=== PATIENT | male | born 1995 | race Caucasian/White ===

== ENCOUNTER → 2024-07-08 | Outpatient (CLI) | payer OTHER, SELFPAY | END | disposition home or self-care (01) | LOC: SLDO 14:38 | PROVIDERS: PCP Nurse Practitioner Family; Referring Provider Nurse Practitioner Family; Visit Provider Nurse Practitioner Family | DX: N39.0 Urinary tract infection, site not specified (principal) | CPT/HCPCS: 87086 ==

== ENCOUNTER → 2024-07-09 | Outpatient (CLI) | payer OTHER, SELFPAY | END | disposition home or self-care (01) | LOC: CDIM 08:07 | PROVIDERS: PCP Family Medicine; Referring Provider Nurse Practitioner Family; Visit Provider Nurse Practitioner Family | DX: R39.82 Chronic bladder pain (principal) ==

== ENCOUNTER 2024-08-09 05:47 | Emergency (ER) | payer OTHER, SELFPAY ==
[2024-08-09 05:50] VITALS: BMI 26.6
[2024-08-09 05:57] VITALS: BP 116/81; PULSE 70; RESP 18; TEMP 36.4; O2SAT 100
--- NOTE | 2024-08-09 06:03 | PD.EDADULT ---
ED General RME/HPI General Chief complaint: Back Pain/Injury Stated complaint: L flank/back pain w nausea/vomiting Time Seen by Provider: 08/09/24 06:03 Arrival date/time: 08/09/24 05:47 CC: Left flank pain HPI spontaneous resolved upon arrival here in the emergency room, onset was 3 to 4 hours ago with progressive increase in CBD mild nausea without vomiting. Patient has a history of kidney stones on the left side last episode was 1 year ago he was informed that there were multiple stones in the renal pelvis. At the time of the exam the patient is completely pain-free no nausea no shortness of breath or difficulty breathing. Related Data Home Medications ?Medication ?Instructions ?Recorded ?Confirmed albuterol sulfate 90 mcg/actuation 1 puff inhalation Q4H PRN Cough 11/12/21 11/02/23 aerosol inhaler pantoprazole 40 mg tablet,delayed 40 mg PO QDAY 11/01/23 11/02/23 release Previous Rx's ?Medication ?Instructions ?Recorded azathioprine 50 mg tablet 50 mg PO QDAY #30 tabs 11/02/23 folic acid 1 mg tablet 1 mg PO QDAY #30 tabs 11/02/23 sulfasalazine 500 mg tablet 1 g (2 x 500 mg) PO BID 30 days 11/02/23 #120 tabs ondansetron 4 mg disintegrating 4 mg PO Q8H PRN nausea and 11/10/23 tablet vomiting #30 tabs prednisone 10 mg tablets in a dose 10 mg PO QDAY #48 tabs 11/10/23 pack tamsulosin 0.4 mg capsule (Flomax) 0.4 mg PO QDAY #14 caps 08/09/24 Allergies Allergy/AdvReac Type Severity Reaction Status Date / Time No Known Allergies Allergy Verified 08/09/24 05:47 Review of Systems Review of Systems Narrative Review of Systems: GEN: No fever, no chills, no weight loss EYES: No discharge, no visual changes, no pain HEENT: No ear pain, no congestion, no sore throat PULM: No shortness of breath, no cough, no congestion CV: No chest pain, no dyspnea on exertion, no palpitations GI: No nausea, no vomiting, no diarrhea, no pain, no constipation : No frequency, no urgency, no dysuria MUSC/SKEL: No joint pain, no back pain SKIN: No rash PSYCH: No hallucinations, no depression HEME/LYMPH: No easy bleeding or bruising tendencies NEURO: No weakness, no headache Past Medical History Past Medical History NEUROLOGIC: Positive Neurological Disorders and Migraine; Negative Seizures CARDIAC: Positive Cardiac Disorders and Angina; Negative Congestive Heart Failure RESPIRATORY: Positive Asthma and Bronchitis; Negative Chronic Obstructive Pulmonary Disease (COPD) GASTROINTESTINAL: Positive Gastrointestinal Disorders, Crohn's Disease and Gastroesophageal Reflux Disease GENITOURINARY: Negative Genitourinary Disorders or Renal Disease MUSCULOSKELETAL: Negative Musculoskeletal Disorders ENDOCRINE: Negative Endocrine Disorders, Diabetes Mellitus Type 1 or Diabetes Mellitus Type 2 HEMATOLOGIC: Negative Blood Disorders, Anemia or Sickle Cell Disease OTHER HISTORY: Positive Chicken Pox; Negative Autoimmune Disease, Falls, Blood Transfusions, Anesthesia Reactions or Cancer Surgical History SURGICAL: Negative Cardiac Surgery or Vasectomy Social History SMOKING STATUS: Never smoker SUBSTANCE USE: does not use ED Exam Narrative Physical exam: [General: Not in any acute distress Head normocephalic HEENT: Within acceptable limits Neck is supple nontender Chest equal chest rise nontender to palpation Respiratory: Clear to auscultation no wheezes crackles or rubs CV: Rate rhythm is regular no murmurs rubs or clicks Abdomen is flat, soft nontender no masses positive bowel sounds all 4 quadrants Back: No CVA tenderness no spinous process tenderness from cervical spine thoracic and lumbar spine Skin: Intact no petechiae rash induration ulceration or crepitus Extremities: Moving all extremity against resistance cap refill less than 2 seconds neurosensory intact Neuro: Awake alert oriented x3 Glascow coma 15 no focal deficits] Course Quality Measures none Vital Signs Vital signs: Vital Signs Temperature 97.6 F 08/09/24 05:57 Pulse Rate 70 08/09/24 05:57 Respiratory Rate 18 08/09/24 05:57 Blood Pressure 116/81 08/09/24 05:57 Pulse Oximetry (%) 100 08/09/24 05:57 Oxygen Delivery Method Room Air 08/09/24 05:57 [facility] Patient data External records reviewed:: [facility] previous records Clinical information provided by:: patient Social determinants that could affect healthcare access:: none Patient has the following chronic illnesses:: Kidney stones How is presenting disease/condition affected by chronic disease/condition?: exacerbated by Evaluation data The following diagnostics were reviewed and interpreted by me:: other (specify) Lab and/or radiology exams considered but not ordered:: None Interpretation Summary: Complete resolution of all symptoms suspect the patient has dropped kidney stone into the bladder, at this time patient be discharged home on a small amount of Flomax if there is worsening symptoms he is advised to return the emergency room immediately Medications Medications considered but not ordered:: None Medication administrations:: None Consultations Consultation(s) initiated? (list below): No Diagnosis Differential Diagnosis ED Complaint MDM: Urolithiasis hydroureter hydronephrosis Most likely diagnosis given after review of the tests above:: Probable kidney stone Admission Indicated Admission indicated?: not indicated Explain why admission is indicated or not indicated:: Stable for discharge Admission Request Was there a request for admission?: No Disposition Plan Disposition Plan: Discharge Discharge Attestation Discharge Attestation: The patient and all family members were given an opportunity to ask questions and understood the discharge instructions. Discharge instructions specifically effects, indications for sooner follow up or return to the emergency department, and the expected course of current diagnosis. Patient condition: Stable Medical Decision Making Differential Diagnosis Differential Diagnosis: Urolithiasis hydroureter hydronephrosis Discharge Plan Plan Patient Disposition: HOME (Self Care) Patient condition on transfer: Stable Prescriptions/Referrals Prescriptions/Med Rec: New tamsulosin [Flomax] 0.4 mg capsule 0.4 mg PO QDAY Qty: 14 0RF No Action albuterol sulfate 90 mcg/actuation HFA aerosol inhaler 1 puff INHALATION Q4H PRN (Reason: Cough) Patient Comments: INHALE 1 PUFF BY MOUTH EVERY 4 HOURS FOR 30 DAYS pantoprazole 40 mg tablet,delayed release (DR/EC) 40 mg PO QDAY Patient Comments: TAKE 1 TABLET BY MOUTH EVERY DAY sulfasalazine 500 mg Tablet 1 g PO BID 30 Days Qty: 120 3RF Rx Instructions: give with food (meal/snack) folic acid 1 mg Tablet 1 mg PO QDAY Qty: 30 3RF azathioprine 50 mg Tablet 50 mg PO QDAY Qty: 30 0RF prednisone 10 mg tablets,dose pack 10 mg PO QDAY Qty: 48 0RF ondansetron 4 mg tablet,disintegrating 4 mg PO Q8H PRN (Reason: nausea and vomiting) Qty: 30 0RF Problem List Clinical Impression: Flank pain Impression comment: Suspected kidney stone has just dropped in the ted Patient/Caregiver Discharge Instructions Other Activity Instructions:: SPECT he just had a kidney stone that dropped in the bladder as you have symptom-free use the Flomax as necessary if the symptoms recur. Follow-up with your primary care provider Education Materials: Abdominal Pain Print Language: Martiniquais Stand Alone Forms: Paula Award Info., Patient Portal Info Letter, Work/School Release PA/CARDIOPULMONARY TECHNICIAN AND EEG TECH Supervising Physician PA/CARDIOPULMONARY TECHNICIAN AND EEG TECH Supervising Physician: James Romo ENP
== END 2024-08-09 06:14 | disposition home or self-care (01) ==
LOC: SERX 06:18
PROVIDERS: Emergency Provider Emergency Medicine; PCP Family Medicine
DX: R10.9 Unspecified abdominal pain (principal); Z87.442 Personal history of urinary calculi
CPT/HCPCS: 99281

== ENCOUNTER → 2024-09-05 | Outpatient (CLI) | payer OTHER, SELFPAY ==
--- NOTE | 2024-09-05 07:09 | XR_ITS ---
Examination: Ultrasound urinary bladder Technique: Grayscale sonographic images urinary bladder Exam date and time: September 05, 2024 0715 hrs. Indications: Pelvic pain left flank pain. Sensation with urination beginning one week ago, history left kidney stones Findings: No bladder mass or bladder calculi Bladder prevoid volume 57 cc postvoid volume 60 cc Prostate 2.6 x 2.1 x 3.0 cm: 8.6 cc no prostate nodules Impression: No bladder mass or bladder calculi Negative for prostatomegaly Negative for prostate nodules
== END | disposition home or self-care (01) ==
LOC: CDIM 06:41
PROVIDERS: PCP Family Medicine; Referring Provider Nurse Practitioner Family; Visit Provider Nurse Practitioner Family
DX: R39.82 Chronic bladder pain (principal)
CPT/HCPCS: 76857

== ENCOUNTER → 2024-09-16 | Outpatient (CLI) | payer OTHER, SELFPAY ==
--- NOTE | 2024-09-16 | XR_ITS ---
Examination: Abdomen AP single view Technique: AP portable supine abdomen, single view Exam date and time: September 16, 2024 at 0719 hrs. Indications: Left lower quadrant abdominal pain 6 months, history kidney stones ulcerative colitis Findings: Nonobstructive bowel gas pattern 6 mm lower pole right renal calculus No ureteral calculi Moderate stool throughout the colon Impression: 6 mm right ureteral calculus
[2024-09-16 07:53] LABS: Collection Type, Urine Clean Catch; Squamous Epithelial Cell,Urine 0 /hpf (0-5)
[2024-09-16 08:22] LABS: Basophils % (Auto) 1 % (0-2.5); Eosinophils # (Auto) 0.3 Thou/mm3 (0.0-0.5); Eosinophils % (Auto) 6 % (0-10); Hematocrit 46.7 % (41.0-53.0); Hemoglobin 16.1 g/dL (13.5-16.0); Immature Granulocytes % (Auto) 1 % (0-0); Immature Granulocytes Auto 0.07 Thou/mm3 (0.00-0.00); Lymphocytes # (Auto) 2.2 Thou/mm3 (1.0-4.8); Lymphocytes % (Auto) 37 % (10-50); Mean Corpuscular HGB Conc 34.5 g/dl (31.0-37.0); Mean Corpuscular Hemoglobin 30.6 pg (25.0-35.0); Mean Corpuscular Volume 89 fL (80-100); Monocytes # (Auto) 0.6 Thou/mm3 (0.0-0.8); Monocytes % (Auto) 10 % (0-12); Neutrophils # (Auto) 2.7 Thou/mm3 (1.8-7.7); Neutrophils % (Auto) 46 % (37-80); Nucleated Red Blood Cell % 0 /100 WBC (0); Platelet Count 234 Thou/mm3 (140-440); RDW Standard Deviation 40.7 fL (35.1-43.9); Red Blood Count 5.26 Miln/mm3 (4.50-5.90); White Blood Count 5.9 Thou/mm3 (3.8-10.6)
[2024-09-16 08:33] LABS: Bilirubin,Urine Negative (Negative); Blood,Urine 2+ (Negative); Clarity,Urine Clear (Clear/Hazy); Color,Urine Yellow (Lt Yel-Yel); Culture Indicated,Urine Not Indicated; Glucose, Urine Negative (Negative); Ketones,Urine Negative (Negative); Leukocyte Esterase,Urine Negative (Negative); Nitrite,Urine Negative (Negative); Protein,Urine Trace (Neg - Trace); RBC,Urine 30 /hpf (0-3); Specific Gravity,Urine 1.033 (1.001-1.035); Urobilinogen,Urine Negative mg/dL (0.0-1.0); WBC,Urine 1 /hpf (0-5)
[2024-09-16 08:39] LABS: Vitamin B12 492 pg/mL (211-911); Vitamin D 25 Hydroxy Total 27.2 ng/mL (7.3-40.2)
[2024-09-16 08:40] LABS: Sed Rate (ESR) 1 mm/hr (0-15)
[2024-09-16 08:45] LABS: Alanine Aminotransferase 77 U/L (10-49); Albumin, Serum 4.7 gm/dL (3.5-5.0); Alkaline Phosphatase 122 U/L (46-116); Anion Gap 4 (7-16); Aspartate Amino Transferase 33 U/L (0-34); BUN/Creatinine Ratio 14 Ratio (12-20); Bilirubin,Total 0.5 mg/dL (0.3-1.2); Blood Urea Nitrogen 17 mg/dL (9-23); C-Reactive Protein < 0.5 mg/dL (0.0-0.9); Calcium 9.5 mg/dL (8.3-10.6); Calcium (Corrected) 9.5 mg/dL (8.5-10.1); Cardiac Risk Estimate 5.6 RATIO (4.0-6.7); Chloride 109 mMol/L (98-107); Cholesterol 267 mg/dL (132-200); Creatinine (Component) 1.2 mg/dL (0.6-1.3); Globulin 2.4 gm/dL (2.3-3.5); Glucose 97 mg/dL (74-106); HDL Cholesterol 48 mg/dL (40-60); LDL Cholesterol,Calculated 183 mg/dL (0-130); Osmolality,Calculated 280 (275-295); Potassium 4.3 mMol/L (3.4-5.1); Sodium 140 mMol/L (136-145); Thyroid Stimulating Hormone 1.14 uIU/mL (0.55-4.78); Total Protein 7.1 gm/dL (5.7-8.2); Triglycerides 178 mg/dL (30-150); eGFR > 60 See Note
== END | disposition home or self-care (01) ==
LOC: CDIM 06:44 → COPL 07:27
PROVIDERS: PCP Internal Medicine; Referring Provider Internal Medicine; Visit Provider Internal Medicine
DX: E78.00 Pure hypercholesterolemia, unspecified (principal); N20.0 Calculus of kidney; R10.32 Left lower quadrant pain; R53.83 Other fatigue
CPT/HCPCS: 36415; 74018; 80053; 80061; 81001; 82306; 82607; 84443; 85025; 85652; 86140

== ENCOUNTER 2024-10-14 09:06 | Emergency (ER) | payer OTHER, SELFPAY ==
[2024-10-14 09:07] VITALS: BMI 25.8
[2024-10-14 09:43] VITALS: BP 128/87; PULSE 73; RESP 16; TEMP 36.7; O2SAT 99; BMI 26.9
--- NOTE | 2024-10-14 09:47 | XR_ITS ---
Examination: CT abdomen and pelvis without contrast. Coronal 3-D reconstructions. Sagittal 2-D reconstructions. Date and time of exam:October 14, 2024 1032 hours Comparison November 20, 2023 INDICATIONS: Left-sided flank and testicular pain today, history 4 mm lower pole left renal calculus CTDI: vol (mGy): 6.68 DLP: (mGycm): 391 Technique: Axial images of the abdomen have been obtained, 3 mm slice thickness Intravenous contrast material has not been administered. Low dose protocols were performed. One or more of the following dose reduction techniques were used; automated exposure control, adjustment of the mA and/or KV according to patient size, use of iterative reconstruction technique. Findings: No focal liver or splenic lesions No gallstones No pancreatic or adrenal mass No renal or ureteral calculi, no hydronephrosis Aorta normal size Absent appendix No bowel obstruction No diverticulitis Normal seminal vesicles Normal size prostate Contracted urinary bladder Old fracture versus ununited epiphysis anterior superior margin L4 IMPRESSION: No renal or ureteral calculi, no hydronephrosis No bladder mass or bladder calculi
--- NOTE | 2024-10-14 09:47 | XR_ITS ---
Examination: Testicular sonography complete TECHNIQUE: Grayscale sonographic images testes, assessment arterial inflow venous outflow Doppler spectral analysis carful analysis Date and time: October 14, 2024 1042 hours INDICATIONS: Onset left testicular pain beginning one month ago FINDINGS: Right testis 3.0 cm epididymis 0.9 cm Arterial flow testicle No testicular mass Left testis 3.5 cm epididymis 0.8 cm Arterial flow testicle. No testicular mass IMPRESSION: Negative study
--- NOTE | 2024-10-14 09:48 | PD.EDRME ---
Rapid Medical Screening Exam RME Arrival date/time: 10/14/24 09:06 29-year-old male with no known medical history presents to the emergency room with a chief complaint of left-sided flank pain, and left testicular tenderness that is intermittent for the last month. I have greeted and performed a focused initial assessment of this patient. A comprehensive ED assessment and evaluation of the patient, analysis of all test results, and completion of the medical decision making process will be conducted by additional ED providers. Chief Complaint: Urogenital-Male Time Seen by Provider: 10/14/24 09:43 Vital signs: Vital Signs Temperature 98.1 F 10/14/24 09:43 Pulse Rate 73 10/14/24 09:43 Respiratory Rate 16 10/14/24 09:43 Blood Pressure 128/87 H 10/14/24 09:43 Pulse Oximetry (%) 99 10/14/24 09:43 Oxygen Delivery Method Room Air 10/14/24 09:43 Vital signs reviewed by provider: Yes
[2024-10-14] MEDS: KETOROLAC INJ 60 MG/2 ML VIAL 30 MG IM (09:52)
[2024-10-14 10:16] LABS: Basophils % (Auto) 1 % (0-2.5); Eosinophils # (Auto) 0.3 Thou/mm3 (0.0-0.5); Eosinophils % (Auto) 4 % (0-10); Hematocrit 43.9 % (41.0-53.0); Hemoglobin 15.4 g/dL (13.5-16.0); Immature Granulocytes % (Auto) 1 % (0-0); Immature Granulocytes Auto 0.05 Thou/mm3 (0.00-0.00); Lymphocytes # (Auto) 2.4 Thou/mm3 (1.0-4.8); Lymphocytes % (Auto) 37 % (10-50); Mean Corpuscular HGB Conc 35.1 g/dl (31.0-37.0); Mean Corpuscular Hemoglobin 31.1 pg (25.0-35.0); Mean Corpuscular Volume 89 fL (80-100); Monocytes # (Auto) 0.7 Thou/mm3 (0.0-0.8); Monocytes % (Auto) 11 % (0-12); Neutrophils # (Auto) 3.1 Thou/mm3 (1.8-7.7); Neutrophils % (Auto) 47 % (37-80); Nucleated Red Blood Cell % 0 /100 WBC (0); Platelet Count 246 Thou/mm3 (140-440); RDW Standard Deviation 41.1 fL (35.1-43.9); Red Blood Count 4.95 Miln/mm3 (4.50-5.90); White Blood Count 6.5 Thou/mm3 (3.8-10.6)
[2024-10-14 10:52] LABS: Collection Type, Urine Clean Catch; Squamous Epithelial Cell,Urine 0 /hpf (0-5)
[2024-10-14 11:09] LABS: Alanine Aminotransferase 50 U/L (10-49); Albumin, Serum 4.8 gm/dL (3.5-5.0); Albumin/Globulin Ratio 1.9 (1.2-2.2); Alkaline Phosphatase 118 U/L (46-116); Anion Gap 10 (7-16); Aspartate Amino Transferase 31 U/L (0-34); BUN/Creatinine Ratio 14 Ratio (12-20); Bilirubin,Total 0.8 mg/dL (0.3-1.2); Blood Urea Nitrogen 17 mg/dL (9-23); Calcium 9.4 mg/dL (8.3-10.6); Calcium (Corrected) 9.4 mg/dL (8.5-10.1); Carbon Dioxide 27.1 mMol/L (20.0-31.0); Chloride 105 mMol/L (98-107); Creatinine (Component) 1.2 mg/dL (0.6-1.3); Estimated Creatinine Clearance 84.2 mL/min (>60); Globulin 2.5 gm/dL (2.3-3.5); Glucose 83 mg/dL (74-106); Lipase 40 U/L (12-53); Osmolality,Calculated 283 (275-295); Sodium 142 mMol/L (136-145); Total Protein 7.3 gm/dL (5.7-8.2); eGFR > 60 See Note
[2024-10-14 11:13] VITALS: BP 128/77; PULSE 67; RESP 18; TEMP 36.9; O2SAT 96
[2024-10-14 11:25] LABS: Bilirubin,Urine Negative (Negative); Blood,Urine Trace (Negative); Clarity,Urine Clear (Clear/Hazy); Color,Urine Lt-Yellow (Lt Yel-Yel); Glucose, Urine Negative (Negative); Ketones,Urine Negative (Negative); Leukocyte Esterase,Urine Negative (Negative); Nitrite,Urine Negative (Negative); Protein,Urine Negative (Neg - Trace); RBC,Urine < 1 /hpf (0-3); Specific Gravity,Urine 1.016 (1.001-1.035); Urobilinogen,Urine Negative mg/dL (0.0-1.0); WBC,Urine 1 /hpf (0-5)
[2024-10-14 14:12] VITALS: BP 130/83; PULSE 76; RESP 16; TEMP 36.4; O2SAT 96
--- NOTE | 2024-10-14 14:24 | PD.EDADULT ---
ED General RME/HPI General Chief complaint: Urogenital-Male Stated complaint: L TESTICULAR PAIN & L LOWER BACK PAIN [id number] Time Seen by Provider: 10/14/24 09:43 Arrival date/time: 10/14/24 09:06 CC: Left testicle pain with radiation to the left flank, ongoing for the past several months worse today. Has been seen by his PCP in [place] for the same complaint where there is no acute finding. Patient states its persistent nature denies bloody urination painful urination penile discharge scrotal swelling scrotal lesions bleeding from the scrotum. Patient denies painful urination or lower abdominal pain. No OTC medicines taken. RME / HPI RME / HPI narrative: 10/14/24 09:06 29-year-old male with no known medical history presents to the emergency room with a chief complaint of left-sided flank pain, and left testicular tenderness that is intermittent for the last month. I have greeted and performed a focused initial assessment of this patient. A comprehensive ED assessment and evaluation of the patient, analysis of all test results, and completion of the medical decision making process will be conducted by additional ED providers. Related Data Home Medications ?Medication ?Instructions ?Recorded ?Confirmed albuterol sulfate 90 mcg/actuation 1 puff inhalation Q4H PRN Cough 11/12/21 11/02/23 aerosol inhaler pantoprazole 40 mg tablet,delayed 40 mg PO QDAY 11/01/23 11/02/23 release Previous Rx's ?Medication ?Instructions ?Recorded azathioprine 50 mg tablet 50 mg PO QDAY #30 tabs 11/02/23 folic acid 1 mg tablet 1 mg PO QDAY #30 tabs 11/02/23 sulfasalazine 500 mg tablet 1 g (2 x 500 mg) PO BID 30 days 11/02/23 #120 tabs ondansetron 4 mg disintegrating 4 mg PO Q8H PRN nausea and 11/10/23 tablet vomiting #30 tabs prednisone 10 mg tablets in a dose 10 mg PO QDAY #48 tabs 11/10/23 pack tamsulosin 0.4 mg capsule (Flomax) 0.4 mg PO QDAY #14 caps 08/09/24 meloxicam 7.5 mg tablet 7.5 mg PO QDAY #10 tabs 10/14/24 Allergies Allergy/AdvReac Type Severity Reaction Status Date / Time No Known Allergies Allergy Verified 10/14/24 09:09 Review of Systems Review of Systems Narrative Review of Systems: GEN: No fever, no chills, no weight loss EYES: No discharge, no visual changes, no pain HEENT: No ear pain, no congestion, no sore throat PULM: No shortness of breath, no cough, no congestion CV: No chest pain, no dyspnea on exertion, no palpitations GI: No nausea, no vomiting, no diarrhea, no pain, no constipation : No frequency, no urgency, no dysuria MUSC/SKEL: No joint pain, no back pain SKIN: No rash PSYCH: No hallucinations, no depression HEME/LYMPH: No easy bleeding or bruising tendencies NEURO: No weakness, no headache Past Medical History Past Medical History NEUROLOGIC: Positive Neurological Disorders and Migraine; Negative Seizures CARDIAC: Positive Cardiac Disorders and Angina; Negative Congestive Heart Failure RESPIRATORY: Positive Asthma and Bronchitis; Negative Chronic Obstructive Pulmonary Disease (COPD) GASTROINTESTINAL: Positive Gastrointestinal Disorders, Crohn's Disease and Gastroesophageal Reflux Disease GENITOURINARY: Negative Genitourinary Disorders or Renal Disease MUSCULOSKELETAL: Negative Musculoskeletal Disorders ENDOCRINE: Negative Endocrine Disorders, Diabetes Mellitus Type 1 or Diabetes Mellitus Type 2 HEMATOLOGIC: Negative Blood Disorders, Anemia or Sickle Cell Disease OTHER HISTORY: Positive Chicken Pox; Negative Autoimmune Disease, Falls, Blood Transfusions, Anesthesia Reactions or Cancer Surgical History SURGICAL: Negative Cardiac Surgery or Vasectomy Social History SMOKING STATUS: Never smoker SUBSTANCE USE: does not use ED Exam Narrative Physical exam: [General: Not in any acute distress Head normocephalic HEENT: Within acceptable limits Neck is supple nontender Chest equal chest rise nontender to palpation Respiratory: Clear to auscultation no wheezes crackles or rubs CV: Rate rhythm is regular no murmurs rubs or clicks Abdomen is soft nontender no masses positive bowel sounds all 4 quadrants : Penis: Circumcised, no blood from the meatus, no discharge. No penile shaft lesions. Scrotum:, No edema erythema open lesions testes are distended, freely mobile and nontender to palpation. Back: No CVA tenderness no spinous process tenderness from cervical spine thoracic and lumbar spine Skin: Intact no petechiae rash induration ulceration or crepitus Extremities: Moving all extremity against resistance cap refill less than 2 seconds neurosensory intact Neuro: Awake alert oriented x3 Glascow coma 15 no focal deficits] Course Quality Measures none Orders Category Date Time Status CT abdomen pelvis wo con Stat Exams 10/14/24 09:47 Completed US testicular Stat Exams 10/14/24 09:47 Completed CBC Stat Lab 10/14/24 09:56 Completed CMP [Comprehensive Metabolic Panel] Stat Lab 10/14/24 09:56 Completed Lipase Stat Lab 10/14/24 09:56 Completed UA [Urinalysis] Stat Lab 10/14/24 10:40 Completed Urine Culture Stat Lab 10/14/24 10:40 Received Ketorolac Inj [Toradol Inj] Med 10/14/24 09:47 Discontinued 30 mg IM X1 ONE Vital Signs Vital signs: Vital Signs Temperature 98.1 F 10/14/24 09:43 Pulse Rate 73 10/14/24 09:43 Respiratory Rate 16 10/14/24 09:43 Blood Pressure 128/87 H 10/14/24 09:43 Pulse Oximetry (%) 99 10/14/24 09:43 Oxygen Delivery Method Room Air 10/14/24 09:43 Discharge Plan Plan Patient Disposition: HOME (Self Care) Patient condition on transfer: Stable Prescriptions/Referrals Prescriptions/Med Rec: New meloxicam 7.5 mg tablet 7.5 mg PO QDAY Qty: 10 0RF No Action albuterol sulfate 90 mcg/actuation HFA aerosol inhaler 1 puff INHALATION Q4H PRN (Reason: Cough) Patient Comments: INHALE 1 PUFF BY MOUTH EVERY 4 HOURS FOR 30 DAYS pantoprazole 40 mg tablet,delayed release (DR/EC) 40 mg PO QDAY Patient Comments: TAKE 1 TABLET BY MOUTH EVERY DAY sulfasalazine 500 mg Tablet 1 g PO BID 30 Days Qty: 120 3RF Rx Instructions: give with food (meal/snack) folic acid 1 mg Tablet 1 mg PO QDAY Qty: 30 3RF azathioprine 50 mg Tablet 50 mg PO QDAY Qty: 30 0RF prednisone 10 mg tablets,dose pack 10 mg PO QDAY Qty: 48 0RF ondansetron 4 mg tablet,disintegrating 4 mg PO Q8H PRN (Reason: nausea and vomiting) Qty: 30 0RF tamsulosin [Flomax] 0.4 mg capsule 0.4 mg PO QDAY Qty: 14 0RF Referrals: No Primary/Family,Physician [Primary Care Provider] - In 1 week Jesenia Schulz MD [Physician] - In 1 week Problem List Clinical Impression: Persistent testicular pain, Left flank pain Patient/Caregiver Discharge Instructions Education Materials: Abdominal Pain Additional Instructions: Elevate your scrotum with washcloth is when you sleep on your back at nighttime, take the medication as prescribed for temporary relief follow-up with the urologist listed above if there is a worsening of symptoms return the emergency room for reevaluation. Print Language: Kinyarwanda Stand Alone Forms: Paula Award Info., Patient Portal Info Letter, Work/School Release JUNI/DELLA Supervising Physician HAL Supervising Physician: James Romo ENP [facility] Clinical Information Provided by: patient Medical Records reviewed [facility] Meds/Rx considered, not ordered None Labs/Rad/Tests considered, not ordered None Chronic Illness/Social Conditions which may negatively complicate care or outcome(s)-explain: None or not applicable EKG EKG not done Labs Labs: interpreted by me Lab(s) Interpretation(s): CBC shows no acute leukocytosis anemia thrombocytopenia CMP shows no electrolyte imbalances renal impairment no significant transaminitis or T. bili elevation Urine is negative for UTI Imaging Imaging interpretation: interpreted by me Imaging Interpretation(s): Testicular ultrasound is negative for any acute finding Abdominal CT as interpreted by me read by radiology as negative for any acute finding. Medication Administration(s) Medication Administration History Discontinued Medications Ketorolac Tromethamine (Ketorolac Inj 60 Mg/2 Ml Vial) 30 mg IM X1 ONE Stop: 10/14/24 09:48 Last Admin: 10/14/24 09:52 Dose: 30 mg Documented By: DO Diagnosis Differential Diagnosis ED Complaint MDM: Epididymitis orchitis urolithiasis
--- NOTE | 2024-10-14 14:50 | PC.NURSE ---
no answer x 1 at 1448. checked outside and lobby.
--- NOTE | 2024-10-14 16:15 | PC.NURSE ---
no answer x 3 at 1510 and 1600. checked outside and lobby. notified provider. pt left before dc paperwork.
== END 2024-10-14 16:17 | disposition home or self-care (01) ==
PROVIDERS: Nurse Practitioner Family; Emergency Provider Emergency Medicine; Referring Provider Emergency Medicine
DX: N50.812 Left testicular pain (principal); R10.9 Unspecified abdominal pain
CPT/HCPCS: 36415; 74176; 76870; 80053; 81001; 83690; 85025; 87086; 96372; 99284; J1885